=== PATIENT | female | born 1970 | race Native Hawaiian/Other Pacific Islander ===

== ENCOUNTER 2018-06-08 09:06 | Day surgery (SDC) | payer OTHER ==
[2018-05-25 08:16] VITALS: BMI 25.6
[2018-06-08] MEDS ORDERED: Midazolam 2 MG/2 ML VIAL ONE (11:34)
[2018-06-08] MEDS ORDERED: Propofol 10 mg/ml Inj (20 ML) ONE (11:38)
--- NOTE | 2018-06-08 12:04 | PCM.SURG1 ---
Surgeon's Initial Post Op Note - Surgeon's Notes Surgeon: Dr. East Dental Associate: None Type of Anesthesia: General LMA Anesthesia Administered By: Dr. Gaytan Pre-Operative Diagnosis: 48 yo with Thickened endometrium , endometrial polyp Operative Findings: AV uterus 6-7 wks gestation , endometrial polyp Post-Operative Diagnosis: Same as above Operation Performed: Hysteroscopsy Myosure D and C Specimen/Specimens Removed: emc, ecc Estimated Blood Loss: EBL {In ML}: 5 Blood Products Given: N/A Drains Used: No Drains Post-Op Condition: Good Date of Surgery/Procedure: 06/08/18 Time of Surgery/Procedure: 12:04
[2018-06-08 13:46] VITALS: RESP 18
[2018-06-08 13:50] VITALS: BP 120/79; PULSE 65; TEMP 97.7; O2SAT 100
--- NOTE | 2018-06-08 23:56 | OP ---
PROCEDURE DATE: 06/08/2018 PREOPERATIVE DIAGNOSES: This is a 48-year-old female with thickened endometrium, endometrial polyp. POSTOPERATIVE DIAGNOSES: This is a 48-year-old female with thickened endometrium, endometrial polyp. PROCEDURE: Hysteroscopy, MyoSure, dilatation and curettage. SURGEON: Manisha East MD ANESTHESIOLOGIST: Jeffery Gibson MD TYPE OF ANESTHESIA: General LMA. FINDINGS: An anteverted uterus with approximately 6 weeks' gestation, noted to have an endometrial polyp. COMPLICATION: None. ESTIMATED BLOOD LOSS: 5 mL. INPUTS AND OUTPUTS: 100 mL. SPECIMENS: EMC, ECC, and polyp. DESCRIPTION OF PROCEDURE: The patient was informed of the risk factors, benefits, and alternatives of the procedure. Risk factors included infection, bleeding, damage to the surrounding organs and tissues, complication from anesthesia, and possible . Risk factors were explained but not limited to. After the informed consent, the patient was then taken to the operating room, prepped and draped in normal sterile fashion, placed in dorsal lithotomy position. A weighted speculum was placed into the vagina. The anterior lip of the cervix was grasped with a single-toothed tenaculum. The uterus was gently sounded to approximately 6 cm. Upon complete uterine dilation, the scope was then placed. A complete surveillance of the uterine cavity was then performed. The MyoSure device was then activated in order to remove the endometrial polyp. Excellent hemostasis was noted. Upon completion, the scope was then removed and a fractional D and C was performed. EMC and ECC were submitted to pathology. Excellent hemostasis. The scope was reintroduced making sure that there were no areas of perforation. Upon completion, all instruments were removed from the vagina. Instrument and lap counts were correct x2. The patient was then taken to the recovery room in stable condition and instructed to follow up in the office in approximately 2 weeks. Manisha East MD
== END 2018-06-08 13:45 | disposition home or self-care (01) ==
LOC: C.SDS 09:06
PROVIDERS: ATTEND Obstetrics & Gynecology
DX: N84.0 Polyp of corpus uteri (principal)
CPT/HCPCS: 58558; 88305; J2250; J2704; J3010

== ENCOUNTER 2019-01-29 12:12 | Outpatient (CLI) | payer OTHER | END 2019-01-29 12:13 | disposition home or self-care (01) | LOC: C.CTH 12:12 ==

== ENCOUNTER 2019-04-19 10:14 | Emergency (ER) | payer OTHER ==
[2019-04-19 10:14] VITALS: BMI 25.6
[2019-04-19 10:18] VITALS: BP 116/78; PULSE 82; RESP 18; TEMP 98.3; O2SAT 98
--- NOTE | 2019-04-19 10:49 | C.PDOC ---
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 Patient states that a needle was left on the counter after a procedure, patient states that she stuck herself with the needle, pi ercing her glove and right index finger. Patient reports minimal bleeding from the area. Patient states that blood was drawn from the source patient which was negative for HIV and Hep C. Patient states that her tetanus shot has not been UTD in the last 20 years. Time Seen by Provider: 04/19/19 10:37 Chief Complaint (Nursing): Needle Stick History Per: Patient History/Exam Limitations: no limitations Onset/Duration Of Symptoms: Hrs Current Symptoms Are (Timing): Still Present Past Medical History Reviewed: Historical Data, Nursing Documentation, Vital Signs Vital Signs: Last Vital Signs Temp 98.3 F 04/19/19 10:18 Pulse 82 04/19/19 10:18 Resp 18 04/19/19 10:18 BP 116/78 04/19/19 10:18 Pulse Ox 98 04/19/19 10:18 Primary Care Provider: Neil Burkett - Medical History PMH: HTN, Hypercholesterolemia Denies: Chronic Kidney Disease Surgical History: Endoscopy - [facility] COLONOSCOPY (01/12/14) Family History: States: No Known Family Hx - Social History Hx Tobacco Use: No Hx Alcohol Use: No Hx Substance Use: No - Immunization History Hx Tetanus Toxoid Vaccination: No Hx Influenza Vaccination: Yes Hx Pneumococcal Vaccination: No Review Of Systems Except As Marked, All Systems Reviewed And Found Negative. Constitutional: Negative for: Fever, Chills Cardiovascular: Negative for: Chest Pain Respiratory: Negative for: Cough, Shortness of Breath Gastrointestinal: Negative for: Nausea, Vomiting, Abdominal Pain Neurological: Negative for: Weakness, Numbness Physical Exam - Physical Exam Appears: Non-toxic, No Acute Distress Skin: Normal Color, Warm, Dry Head: Atraumatic, Normacephalic Eye(s): bilateral: Normal Inspection Neck: Normal, Supple Chest: Symmetrical Extremity: Normal ROM (at right hand and right index finger), No Tenderness (to right hand), No Swelling (to right hand), No Other (no bleeding from right index finger) Neurological/Psych: Oriented x3, Normal Speech, Normal Cognition, Normal Motor, Normal Sensation ED Course And Treatment - Laboratory Results Result Diagrams: 04/19/19 11:26 04/19/19 11:26 O2 Sat by Pulse Oximetry: 98 (RA) Pulse Ox Interpretation: Normal Medical Decision Making Medical Decision Making: Plan: Chemistry CBC Tetanus vaccination Rapid Plasma Reagin HCG Qualitative Urine Urinalysis Needle stick policy was followed. Bloodwork sent, no HIV medications were given since source patient was negative. Patient sent to f/u with employee health. Disposition - Disposition Disposition: HOME/ ROUTINE Disposition Time: 11:21 Condition: STABLE Additional Instructions: Follow up with Employee [place] Forms: [facility] (Malaysian), General Discharge Instructions - POA Present On Arrival: None - Clinical Impression Clinical Impression: Needle stick injury - Scribe Statement The provider has reviewed the documentation as recorded by the Scribe (Oli Goode) Provider Attestation: All medical record entries made by the Scribe were at my direction and personally dictated by me. I have reviewed the chart and agree that the record accurately reflects my personal performance of the history, physical exam, medical decision making, and the department course for this patient. I have also personally directed, reviewed, and agree with the discharge instructions and disposition.
[2019-04-19] MEDS ORDERED: Tetanus/Diphtheria Toxoids 0.5 ml Syringe IM ONE ×2 (11:00→11:12)
[2019-04-19 11:36] LABS: BASO # 0.1 K/uL (0.0-0.2); BASO % 1.1 % (0.0-2.0); EOS # 0.5 K/uL (0.0-0.7); EOS % 9.3 % (0.0-4.0); HEMOGLOBIN 11.9 g/dL (11.0-16.0); LYMPH # 1.7 K/uL (1.0-4.3); LYMPH % 32.4 % (20.0-40.0); MEAN CELL VOLUME 67.5 fL (81.0-99.0); MEAN CORPUSCULAR HEMOGLOBIN 20.9 pg (27.0-31.0); MEAN PLATELET VOLUME 9.1 fL (7.2-11.7); MONO # 0.3 K/uL (0.0-0.8); MONO % 6.8 % (0.0-10.0); NEUT # 2.6 K/uL (1.8-7.0); NEUT % 50.4 % (50.0-75.0); NRBC % 0.1 % (0.0-2.0); RBC 5.71 Mil/uL (3.80-5.20); RED CELL DISTRIBUTION WIDTH 14.8 % (11.5-14.5); WHITE BLOOD COUNT 5.1 K/uL (4.8-10.8)
[2019-04-19 11:37] LABS: HCG,QUALITATIVE URINE NEGATIVE (NEGATIVE)
[2019-04-19 11:40] LABS: SQUAMOUS EPITHIAL < 1 /hpf (0-5); URINE BACTERIA RARE (<OCC); URINE BILIRUBIN NEGATIVE (NEGATIVE); URINE BLOOD NEGATIVE (NEGATIVE); URINE CLARITY Hazy (Clear); URINE COLOR Yellow (YELLOW); URINE GLUCOSE (UA) NORMAL (Normal); URINE LEUKOCYTE ESTERASE NEG Leu/uL (Negative); URINE PROTEIN NEGATIVE (NEGATIVE); URINE UROBILINOGEN NORMAL mg/dL (0.2-1.0)
[2019-04-19 11:49] LABS: ALB/GLOB RATIO 1.3 (1.0-2.1); ALBUMIN 4.4 g/dL (3.5-5.0); ALT/SGPT 34 U/L (9-52); AMYLASE 94 U/L (30-110); AST/SGOT 33 U/L (14-36); BLOOD UREA NITROGEN 13 mg/dL (7-17); CALCIUM 9.8 mg/dl (8.6-10.4); GFR NON-AFRICAN AMERICAN > 60
[2019-04-19 12:19] LABS: HEPATITIS B SURFACE AG Negative (NEGATIVE)
[2019-04-19 12:25] LABS: HEPATITIS A IGM NEGATIVE (NEGATIVE); HEPATITIS B CORE AB NEGATIVE (NEGATIVE)
[2019-04-19 12:36] LABS: HEPATITIS C ANTIBODY NEGATIVE (NEGATIVE)
== END 2019-04-19 11:24 | disposition home or self-care (01) ==
LOC: C.ER 10:14
DX: S69.91XA Unspecified injury of right wrist, hand and finger(s), initial encounter (principal); W46.0XXA Contact with hypodermic needle, initial encounter; Y92.238 Other place in hospital as the place of occurrence of the external cause; Y99.0 Civilian activity done for income or pay